=== PATIENT | male | born 1990 | race African-American/Black ===

== ENCOUNTER 2017-04-29 16:34 | Outpatient (CLI) | payer OTHER ==
--- NOTE | 2017-04-30 18:11 | MRI Report ---
EXAM: LEFT MIDFOOT MRI WITHOUT CONTRAST EXAM DATE: 04/29/2017 05:48 PM. CLINICAL HISTORY: Hemangioma unspecified. "2 months ago noticed enlarged area of swallowing and occas ional pain medial plantar surface of forefoot along first metatarsal". COMPARISON: None. TECHNIQUE: Multiplanar, multisequence T1-weighted and fluid-sensitive sequences of the midfoot withou t contrast. Other: None. FINDINGS: Bones: No fractures or subluxations. No marrow edema. No bone lesions. Articular Cartilage: Unremarkable. Ligaments: The visualized intertarsal, intermetatarsal, and tarsometatarsal ligaments are intact. Thi s includes the Lisfranc ligament. The visualized collateral ligaments are intact. Tendons: The flexor and extensor tendons are unremarkable. Musculature: No edema or fatty atrophy. Other: No effusions. The visualized portion of the tarsal tunnel is unremarkable. No intermetatarsal bursitis. There is a fusiform mass at the medial plantar aponeurosis at the level of the first metata rsal base corresponding to the site indicated by the skin marker which measures 2.6 cm in length and 1.5 x 1.0 cm in transverse dimension. This plantar fibroma is of intermediate signal on the T1-weight ed sequence and is of a mixed high and low signal on the proton density axial sequences with and with out fat saturation. IMPRESSION: Plantar fibromatosis with medial plantar aponeurosis 2.6 cm in length and 1.5 x 1.0 cm tr ansverse dimension mixed signal lesion or fibroma. [facility] MUSCULOSKE[facility] RADIOLOG[facility] SECTION Referring Provider Line: [phone] SITE ID: [id number]
== END 2017-04-29 16:35 | disposition home or self-care (01) ==
LOC: DI 16:34
PROVIDERS: ATTEND Physician Assistant
DX: M72.2 Plantar fascial fibromatosis (principal)